=== PATIENT | female | born 1950 | race Caucasian/White ===

== ENCOUNTER 2022-09-16 04:13 | Day surgery (SDC) | payer OTHER, BC ==
[2022-09-14 16:06] VITALS: BMI 27.4
[2022-09-16 12:33] VITALS: TEMP 98
[2022-09-16 12:35] VITALS: BP 132/71; PULSE 60; RESP 18
== END 2022-09-16 12:45 | disposition home or self-care (01) ==
LOC: JASU-ENDO 04:13
PROVIDERS: ATTEND Internal Medicine Gastroenterology
PROC: 0DJD8ZZ Inspection of Lower Intestinal Tract, Via Natural or Artificial Opening Endoscopic (ICD-10-PCS; principal; 2022-09-16 10:00)
DX: Z12.11 Encounter for screening for malignant neoplasm of colon (principal); K57.30 Diverticulosis of large intestine without perforation or abscess without bleeding; Z80.0 Family history of malignant neoplasm of digestive organs